=== PATIENT | female | born 1955 | race Caucasian/White ===

== ENCOUNTER → 2017-01-27 | Outpatient (CLI) | payer OTHER ==
--- NOTE | ~2017-01-27 | MY11 ---
[facility] A Service of [facility] & [facility] RADIOLOGY TEXT RESULTS PATIENT: KASIA DELATORRE LOCATION: [facility] : 51 UNIT #: [id number] AGE: [address]: Sumi Phipps APRN SEX: F ORDER DR: [id number] [address] [address] [id number] O MR#: [id number] Acc #: [id number] NAME: KASIA DELATORRE : 1955 SEX: F STUDY DATE/TIME: 01/27/2017 13:03 UNIT: [facility] ROOM: STUDY DESCRIPTION: MY Mammogram Screening Dig Dorian Attending Physician: Sumi Phipps A.P.R.N. Referring Physician: Sumi Phipps A.P.R.N. Ordering Physician: Sumi Phipps A.P.R.N. Primary Care Physician: Sumi Phipps A.P.R.N. MEDICAL IMAGING REPORT This report is preliminary unless electronic signature is present. REVISED REPORT SEE ADDENDUM EXAM Digital screening mammogram 01/27/2017 HISTORY 61-year-old woman no risk elevation. Annual screen. COMPARISON None available. FINDINGS Digital imaging of each breast was completed utilizing screening protocol. Review includes FDA-approved CAD device. Breast parenchyma is partially fatty replaced and mildly heterogeneous. Mild parenchymal dominance projects in the central aspect of the left breast projecting just medial to the nipple line in the craniocaudal projection and slightly above the nipple line on the MLO projection. This slightly dominant area appears to include subtle architectural distortion. Therefore, additional imaging will be required to exclude a significant finding. This would include a true lateral projection, high-resolution spot compression views and targeted left breast ultrasound if indicated. Right breast appears negative at this time. Patients over the age of 40 are entered into a reminder system with target due date for the next mammogram. A result letter will also be sent to the patient. IMPRESSION BIRADS: 0 Incomplete; Need additional imaging evaluation and/or prior mammograms for comparison [facility] A Service of [facility] & [facility] RADIOLOGY TEXT RESULTS PATIENT: KASIA DELATORRE LOCATION: [facility] : 51 UNIT #: [id number] AGE: [address]: Sumi Phipps APRN SEX: F ORDER DR: Additional left breast imaging is recommended. See complete report for recommendations. Dictated by... Ricco Lopez M.D. THIS IS AN ELECTRONICALLY VERIFIED REPORT Ricco Lopez M.D. at 01/28/2017 11:03 AM WARNER/olman TD: 01/27/2017 18:29 JOB #: [id number] ADDENDUM EXAM Bilateral digital screening mammogram with CAD. INDICATION Routine screening. No current complaints. FINDINGS Patient has obtained outside mammograms from 10/16/2015, 10/11/2014 and 09/20/2013. The questionable stellate area seen in the left breast on the recent study was not visible on old exams. Additional imaging will be necessary. BIRADS: 0 Needs additional imaging evaluate and/or prior mammograms for comparison. Dictated by... Chilo Snow M.D. THIS IS AN ELECTRONICALLY VERIFIED REPORT Chilo Snow M.D. at 02/14/2017 11:01 AM MICHAEL/mazin TD: 02/10/2017 13:29 JOB #: [id number] MEDICAL IMAGING REPORT Page 1 of 1
== END | disposition home or self-care (01) ==
LOC: SMAM 12:20
DX: Z12.31 Encounter for screening mammogram for malignant neoplasm of breast (principal)
CPT/HCPCS: G0202